=== PATIENT | female | born 1965 | race Hispanic/Latino ===

== ENCOUNTER 2019-08-20 09:13 | Emergency (ER) | payer SELFPAY ==
[~2019-08-20 09:13] MED LIST: FLEXERIL OR; NAPROXEN375 MG OR; NO
[2019-08-20 09:45] LABS: URINE BILIRUBIN - DIPSTICK NEGATIVE (NEGATIVE); URINE BLOOD DIPSTICK SMALL (NEGATIVE); URINE COLOR YELLOW; URINE GLUCOSE - DIPSTICK >=1000 mg/dL (NEGATIVE); URINE KETONE TRACE mg/dL (NEGATIVE); URINE LEUK ESTERASE NEGATIVE (NEGATIVE); URINE NITRITE - DIPSTICK NEGATIVE (Negative); URINE PH 6.5 (4.5-8.0); URINE PROTEIN - DIPSTICK TRACE mg/dL (NEG-TRACE); URINE SPECIFIC GRAVITY 1.015; URINE UROBILINOGEN - DIPSTICK 0.2 E.U./dL (0.2)
[2019-08-20 09:46] LABS: HEMATOCRIT 44.8 % (37.0-47.0); IMMATURE GRANULOCYTES 0.4 % (0.0-5.0); MEAN CORPUSCULAR HGB 29.5 pG CALC (26.0-32.0); MEAN CORPUSCULAR HGB CONC 33.5 g/dL CAL (32.0-36.0); NEUT# 4.74 thou/uL (2.00-7.15); RED BLOOD COUNT 5.09 mill/uL (4.20-5.60); RED CELL DISTRI WIDTH 12.2 % (11.5-15.5)
[2019-08-20 09:55] LABS: URINE MUCUS FEW hpf (NONE-FEW); URINE SQUAMOUS EPITHELIAL CELL FEW EPI/hpf (0-FEW); URINE WBC 20-50 WBC/hpf (0-5)
[2019-08-20 10:18] LABS: ALBUMIN 4.1 g/dL (3.2-5.0); BUN 12 mg/dL (7-17); BUN/CREATININE RATIO 30 (12-20 (CALC)); CARBON DIOXIDE 21 mmol/l (22-30); CHLORIDE 101 mmol/l (95-108); CREATININE 0.4 mg/dL (0.5-1.0); GFR > 60 ML/MIN (>=60 (CALC)); GFR FOR AFR.AMER. > 60 ML/MIN (>=60 (CALC)); LIPASE 120 u/l (23-300); POTASSIUM 4.3 mmol/l (3.5-5.1); SGOT/AST 38 u/l (14-36); TOTAL PROTEIN 7.2 g/dL (6.3-8.2)
[2019-08-20 10:24] LABS: ALKALINE PHOSPHATASE 174 u/l (38-126); ANION GAP 14 (6-22 (CALC)); BILIRUBIN, TOTAL 0.6 mg/dL (0.0-1.4); SODIUM 132 mmol/l (137-146)
[2019-08-20] MEDS ORDERED: CEPHALEXIN500 M1 PO (10:27)
[2019-08-20 10:44] VITALS: BP 148/80
== END 2019-08-20 10:44 | disposition home or self-care (01) | DRG 690 ==
LOC: ED 09:13
PROVIDERS: Family Medicine
DX: N39.0 Urinary tract infection, site not specified (principal); E11.9 Type 2 diabetes mellitus without complications

== ENCOUNTER 2019-09-18 20:49 | Emergency (ER) | payer SELFPAY ==
[~2019-09-18] VITALS: Ht 152.4 cm; Wt 74.0 kg
[~2019-09-18 20:49] MED LIST changes: +CEPHALEXIN500 M1 PO
[2019-09-18 21:28] LABS: URINE BILIRUBIN - DIPSTICK NEGATIVE (NEGATIVE); URINE BLOOD DIPSTICK NEGATIVE (NEGATIVE); URINE COLOR YELLOW; URINE GLUCOSE - DIPSTICK >=1000 mg/dL (NEGATIVE); URINE KETONE TRACE mg/dL (NEGATIVE); URINE LEUK ESTERASE NEGATIVE (NEGATIVE); URINE NITRITE - DIPSTICK NEGATIVE (Negative); URINE PH 5.5 (4.5-8.0); URINE PROTEIN - DIPSTICK NEGATIVE (NEG-TRACE); URINE UROBILINOGEN - DIPSTICK 0.2 E.U./dL (0.2)
[2019-09-18 21:31] LABS: HEMATOCRIT 42.5 % (37.0-47.0); HEMOGLOBIN 14.2 g/dl (12.0-16.0); IMMATURE GRANULOCYTES 0.1 % (0.0-5.0); MEAN CELL VOLUME 88.5 fL CALC (80.0-100.0); MEAN CORPUSCULAR HGB 29.6 pG CALC (26.0-32.0); MEAN CORPUSCULAR HGB CONC 33.4 g/dL CAL (32.0-36.0); NEUT# 3.5 thou/uL (2.00-7.15); RED BLOOD COUNT 4.8 mill/uL (4.20-5.60)
[2019-09-18 21:47] LABS: ALBUMIN 4.4 g/dL (3.2-5.0); ALKALINE PHOSPHATASE 203 u/l (38-126); ANION GAP 12 (6-22 (CALC)); BUN 7 mg/dL (7-17); BUN/CREATININE RATIO 19 (12-20 (CALC)); CARBON DIOXIDE 25 mmol/l (22-30); CHLORIDE 102 mmol/l (95-108); CREATININE 0.4 mg/dL (0.5-1.0); GFR > 60 ML/MIN (>=60 (CALC)); GFR FOR AFR.AMER. > 60 ML/MIN (>=60 (CALC)); LIPASE 116 u/l (23-300); POTASSIUM 4.1 mmol/l (3.5-5.1); SGOT/AST 40 u/l (14-36); SODIUM 134 mmol/l (137-146); TOTAL PROTEIN 7.2 g/dL (6.3-8.2)
[2019-09-18 21:49] LABS: AMYLASE < 30 u/l (30-110); BILIRUBIN, TOTAL 0.3 mg/dL (0.0-1.4)
[2019-09-19 01:30] VITALS: BP 145/70
== END 2019-09-19 01:38 | disposition home or self-care (01) | DRG 392 ==
LOC: ED 20:49
PROVIDERS: Emergency Medicine
DX: R10.11 Right upper quadrant pain (principal); E11.9 Type 2 diabetes mellitus without complications; Z87.442 Personal history of urinary calculi
CPT/HCPCS: Q9967

== ENCOUNTER 2021-09-22 22:29 | Emergency (ER) | payer SELFPAY ==
[~2021-09-22] VITALS: Ht 152.4 cm; Wt 69.5 kg
[2021-09-22 22:53] VITALS: BP 141/72
[2021-09-22 23:00] VITALS: BP 134/87
[2021-09-22 23:16] VITALS: BP 158/80
[2021-09-22 23:20] LABS: HEMATOCRIT 39.1 % (37.0-47.0); HEMOGLOBIN 13.6 g/dl (12.0-16.0); IMMATURE GRANULOCYTES 0.1 % (0.0-5.0); MEAN CELL VOLUME 86.9 fL CALC (80.0-100.0); MEAN CORPUSCULAR HGB 30.2 pG CALC (26.0-32.0); MEAN CORPUSCULAR HGB CONC 34.8 g/dL CAL (32.0-36.0); NEUT# 6.21 thou/uL (2.00-7.15); RED BLOOD COUNT 4.5 mill/uL (4.20-5.60); RED CELL DISTRI WIDTH 11.8 % (11.5-15.5)
[2021-09-22 23:30] VITALS: BP 134/77
[2021-09-22 23:38] LABS: ALBUMIN 3.8 g/dL (3.2-5.0); ALKALINE PHOSPHATASE 191 u/l (38-126); ANION GAP 12 (6-22 (CALC)); BILIRUBIN, TOTAL 0.2 mg/dL (0.0-1.4); BUN 12 mg/dL (7-17); BUN/CREATININE RATIO 35 (12-20 (CALC)); CARBON DIOXIDE 23 mmol/l (22-30); CHLORIDE 101 mmol/l (95-108); CPK 72 u/l (30-165); CREATININE 0.3 mg/dL (0.5-1.0); GFR FOR AFR.AMER. > 60 ML/MIN (>=60 (CALC)); GFR OTHER RACES > 60 ML/MIN (>=60 (CALC)); SGOT/AST 25 u/l (14-36); SODIUM 132 mmol/l (137-146); TOTAL PROTEIN 6.5 g/dL (6.3-8.2)
[2021-09-22 23:43] LABS: D-DIMER 0.17 mg/L (0.19-0.60)
[2021-09-22 23:45] VITALS: BP 148/73
[2021-09-22 23:46] LABS: ACT PARTIAL THROMBO TIME 22.9 SECONDS (20.0-32.5); INTERNATIONAL NORMALIZED RATIO 0.9 RATIO (0.7-1.3); MYOGLOBIN 14 ng/mL (0 - 62); PROTHROMBIN TIME 9.8 SECONDS (9.0-12.5)
[2021-09-23] VITALS: BP 143/83
[2021-09-23 00:15] VITALS: BP 148/79
[2021-09-23] MEDS ORDERED: TORADOL PO (02:09)
[2021-09-23 02:34] VITALS: BP 133/76
== END 2021-09-23 02:41 | disposition home or self-care (01) | DRG 556 ==
LOC: ED 22:29
PROVIDERS: Family Medicine
DX: M25.522 Pain in left elbow (principal); E11.9 Type 2 diabetes mellitus without complications